=== PATIENT | female | born 1995 | race Caucasian/White ===

== ENCOUNTER 2018-03-26 18:36 | Emergency (ER) | payer OTHER ==
[2018-03-26 19:08] VITALS: TEMP 97.4; O2SAT 98
[2018-03-26 19:52] VITALS: BP 119/79; PULSE 76; RESP 27
== END 2018-03-26 19:47 | disposition home or self-care (01) | DRG 605 ==
LOC: ED 18:36
DX: S60.222A Contusion of left hand, initial encounter (principal); W21.07XA Struck by softball, initial encounter; Y93.64 Activity, baseball
CPT/HCPCS: 73130; 99283

== ENCOUNTER 2019-04-05 09:34 | Emergency (ER) | payer OTHER, BC ==
[2019-04-05 09:42] VITALS: RESP 20
[2019-04-05 10:06] VITALS: TEMP 97
[2019-04-05 10:33] LABS: BASOPHILS % (AUTO) 1 % (0-3); EOSINOPHILS % (AUTO) 8 % (0-9); HEMATOCRIT 47 % (35-47); MEAN CORPUSCULAR HEMOGLOBIN 25.4 pg (27.0-32.0); MEAN CORPUSCULAR HGB CONC 31.9 gm/dl (32.0-36.0); MONOCYTES % (AUTO) 5.4 % (0-12); NEUTROPHILS % (AUTO) 58.6 % (37-80)
[2019-04-05 10:36] LABS: MEAN CORPUSCULAR VOLUME 80 fL (81-99)
[2019-04-05 10:51] LABS: ALBUMIN 3.9 gm/dl (3.4-5.0); ALKALINE PHOSPHATASE 86 IU/L (46-116); ALT 37 IU/L (14-63); AST 21 IU/L (15-37); BILIRUBIN,TOTAL 0.8 mg/dl (0.2-1.0); BLOOD UREA NITROGEN 15 mg/dl (7-18); CALCIUM 9.1 mg/dl (8.5-10.1); CARBON DIOXIDE 25.5 mEq/L (21-32); CHLORIDE 104 mMol/L (98-107); GLUCOSE 88 mg/dl (74-106); POTASSIUM 4.1 mMol/L (3.5-5.1); SODIUM 139 mMol/L (136-145); TOTAL PROTEIN 8.4 gm/dl (6.4-8.2); TROP I < 0.017 ng/ml (0.000-0.056)
[2019-04-05] MEDS ORDERED: SODIUM CHLORIDE 0.9% FLUSH 10 ML SOL IV PRN (11:10)
[2019-04-05] MEDS ORDERED: KETOROLAC TROMETHAMINE 30 MG/ML SOL IV ONE (11:10)
[2019-04-05] MEDS ORDERED: KETOROLAC TROMETHAMINE 30 MG/ML SOL ONE (11:11)
[2019-04-05 11:53] VITALS: BP 159/86; PULSE 70; O2SAT 93
== END 2019-04-05 11:50 | disposition home or self-care (01) | DRG 922 ==
LOC: ED 09:34
DX: T75.4XXA Electrocution, initial encounter (principal); J18.9 Pneumonia, unspecified organism; M25.511 Pain in right shoulder; W86.8XXA Exposure to other electric current, initial encounter; R06.02 Shortness of breath; R05 Cough; K76.0 Fatty (change of) liver, not elsewhere classified; R16.1 Splenomegaly, not elsewhere classified
CPT/HCPCS: 36415; 71250; 80053; 84484; 84703; 85025; 93005; 96374; 99284; 99285; G0390; J1885

== ENCOUNTER 2019-04-16 12:18 | Day surgery (SDC) | payer BC ==
[2019-04-16 12:41] VITALS: RESP 16
[2019-04-16] MEDS ORDERED: SODIUM CHLORIDE 0.9% FLUSH 10 ML SOL IV ONE ×5 (12:56→13:33)
[2019-04-16] MEDS ORDERED: BUPIVACAINE HCL 0.25% MPF 30 ML SOL INFIL ONE (13:07)
[2019-04-16] MEDS ORDERED: DEXAMETHASONE SOD PHOS PF 10 MG/ML SOL IJ ONE (13:07)
[2019-04-16] MEDS: MIDAZOLAM 2 MG/2 ML SOL ONE ×3 (13:23→13:33)
[2019-04-16] MEDS: FENTANYL 100MCG/2ML SOL ONE ×2 (13:24→13:31)
[2019-04-16] MEDS ORDERED: MIDAZOLAM 2 MG/2 ML SOL ONE (13:33)
[2019-04-16 13:43] VITALS: PULSE 74; TEMP 97.1; O2SAT 94
[2019-04-16 16:15] VITALS: BP 154/97
== END 2019-04-16 14:15 | disposition home or self-care (01) ==
LOC: SURG 12:18
PROVIDERS: ATTEND Nurse Anesthetist, Certified Registered
DX: M51.17 Intervertebral disc disorders with radiculopathy, lumbosacral region (principal)
CPT/HCPCS: J2250; J3010; J1100